=== PATIENT | female | born 1950 | race Caucasian/White ===

== ENCOUNTER 2020-10-16 11:52 | Emergency (ER) | payer MEDICARE, BC ==
--- NOTE | 2020-10-16 12:09 | EDM.PDOC ---
ED HPI GENERAL MEDICAL PROBLEM - General Chief Complaint: Cardiovascular Problem Stated Complaint: refered Time Seen by Provider: 10/16/20 11:53 Source of Information: Reports: Patient History Limitations: Reports: No Limitations - History of Present Illness INITIAL COMMENTS - FREE TEXT/NARRATIVE: Patient is a 70-year-old female who was sent over for clinic for palpitations. Patient with the clinic because she was having some right-sided chest pain that she attributed to working in garden because it became worse whenever she moves the area or bends over the some heavy. While in clinic she had a heart rate in 150s and was told to come in for evaluation. Patient here put on a monitor and get EKG did show a heart rate of 154 and you are calling atrial fibrillation but it seems to be regular not in an regular irregular pattern of A. fib. Once patient was placed on pads she converted to sinus rhythm without any medication and have not received maybe 100 cc of fluids. Before this patient did not have any left-sided chest pain no shortness of breath no headache fever chills leg swelling. States takes a lot of supplements but does have any major health problems. Currently patient still has pain on the right side of her chest but has no other complaints. Pain is nonradiating and feels like a crampy achy feeling. Right Chest Pain Score (Numeric/FACES): 0 - Related Data Allergies Allergy/AdvReac Type Severity Reaction Status Date / Time aspirin [From Percodan] Allergy Hives Verified 10/16/20 12:10 oxycodone [From Percodan] Allergy Hives Verified 10/16/20 12:10 Sulfa (Sulfonamide Allergy Hives Verified 10/16/20 12:10 Antibiotics) Home Meds: Home Meds Apixaban [Eliquis] 5 mg PO BID 30 Days #60 tablet 10/16/20 [Rx] Levothyroxine 75 mcg PO DAILY 10/16/20 [History] Metoprolol Succinate [Kapspargo Sprinkle] 25 mg PO DAILY 30 Days #30 cap.spr.24 10/16/20 [Rx] ED ROS GENERAL - Review of Systems Review Of Systems: See Below Constitutional: Reports: No Symptoms HEENT: Reports: No Symptoms Respiratory: Reports: No Symptoms Cardiovascular: Reports: Chest Pain Endocrine: Reports: No Symptoms GI/Abdominal: Reports: No Symptoms : Reports: No Symptoms Musculoskeletal: Reports: No Symptoms Skin: Reports: No Symptoms Neurological: Reports: No Symptoms Psychiatric: Reports: No Symptoms Hematologic/Lymphatic: Reports: No Symptoms Immunologic: Reports: No Symptoms ED EXAM, GENERAL - Physical Exam Exam: See Below Exam Limited By: No Limitations General Appearance: Alert, WD/WN, No Apparent Distress Eye Exam: Bilateral Eye: EOMI, PERRL Respiratory/Chest: No Respiratory Distress, Lungs Clear, Normal Breath Sounds Cardiovascular: Normal Peripheral Pulses, Regular Rate, Rhythm GI/Abdominal: Normal Bowel Sounds, Soft, Non-Tender Extremities: Normal Inspection, Normal Range of Motion Neurological: Alert, Oriented, CN II-XII Intact, Normal Cognition, Normal Gait #1 Interpretation EKG Date: 10/16/20 Time: 12:06 Rhythm: A-Fib Rate (Beats/Min): 154 ST-T: Normal #2 Interpretation EKG Date: 10/16/20 Time: 12:32 Rhythm: NSR Rate (Beats/Min): 81 ST-T: Normal Course - Vital Signs Last Recorded V/S: Last Vital Signs Temp 97.4 F 10/16/20 12:10 Pulse 84 10/16/20 12:29 Resp 16 10/16/20 12:29 BP 127/83 10/16/20 12:29 Pulse Ox 99 10/16/20 12:29 - Orders/Labs/Meds Orders: Active Orders 24 hr Category Date Time Status EKG Documentation Completion [RC] STAT Care 10/16/20 12:09 Active REFLEX LACTIC ACID YES OR NO [CHEM] Routine Lab 10/16/20 13:18 Received TROPONIN I [CHEM] Stat Lab 10/16/20 14:30 Ordered Labs: Laboratory Tests 10/16/20 10/16/20 10/16/20 Range/Units 12:18 12:18 12:18 WBC 11.79 H (4.0-11.0) K/uL RBC 4.45 (4.30-5.90) M/uL Hgb 14.3 (12.0-16.0) g/dL Hct 42.5 (36.0-46.0) % MCV 95.5 (80.0-98.0) fL MCH 32.1 H (27.0-32.0) pg MCHC 33.6 (31.0-37.0) g/dL RDW Std Deviation 46.4 (28.0-62.0) fl RDW Coeff of Becky 13 (11.0-15.0) % Plt Count 226 (150-400) K/uL MPV 9.70 (7.40-12.00) fL Neut % (Auto) 70.3 (48.0-80.0) % Lymph % (Auto) 21.2 (16.0-40.0) % Calhoun % (Auto) 8.2 (0.0-15.0) % Eos % (Auto) 0.1 (0.0-7.0) % Baso % (Auto) 0.2 (0.0-1.5) % Neut # (Auto) 8.3 H (1.4-5.7) K/uL Lymph # (Auto) 2.5 H (0.6-2.4) K/uL Calhoun # (Auto) 1.0 H (0.0-0.8) K/uL Eos # (Auto) 0.0 (0.0-0.7) K/uL Baso # (Auto) 0.0 (0.0-0.1) K/uL Nucleated RBC % 0.0 /100WBC Nucleated RBCs # 0 K/uL INR 1.11 APTT 26.5 (18.6-31.3) SEC Sodium 137 (136-145) mmol/L Potassium 3.9 (3.5-5.1) mmol/L Chloride 101 (98-107) mmol/L Carbon Dioxide 25.0 (21.0-32.0) mmol/L BUN 18 (7.0-18.0) mg/dL Creatinine 1.0 (0.6-1.0) mg/dL Est Cr Clr Drug Dosing 50.89 mL/min Estimated GFR (MDRD) 55.1 ml/min Glucose 115 H (74-106) mg/dL Lactic Acid (0.4-2.0) mmol/L Calcium 9.4 (8.5-10.1) mg/dL Total Bilirubin 0.9 (0.2-1.0) mg/dL AST 43 H (15-37) IU/L ALT 55 (14-63) IU/L Alkaline Phosphatase 104 (46-116) U/L Creatine Kinase 552 H (26-308) U/L Troponin I < 0.050 (0.000-0.056) ng/mL Total Protein 7.8 (6.4-8.2) g/dL Albumin 3.7 (3.4-5.0) g/dL Globulin 4.1 H (2.6-4.0) g/dL Albumin/Globulin Ratio 0.9 (0.9-1.6) 10/16/20 Range/Units 12:30 WBC (4.0-11.0) K/uL RBC (4.30-5.90) M/uL Hgb (12.0-16.0) g/dL Hct (36.0-46.0) % MCV (80.0-98.0) fL MCH (27.0-32.0) pg MCHC (31.0-37.0) g/dL RDW Std Deviation (28.0-62.0) fl RDW Coeff of Becky (11.0-15.0) % Plt Count (150-400) K/uL MPV (7.40-12.00) fL Neut % (Auto) (48.0-80.0) % Lymph % (Auto) (16.0-40.0) % Calhoun % (Auto) (0.0-15.0) % Eos % (Auto) (0.0-7.0) % Baso % (Auto) (0.0-1.5) % Neut # (Auto) (1.4-5.7) K/uL Lymph # (Auto) (0.6-2.4) K/uL Calhoun # (Auto) (0.0-0.8) K/uL Eos # (Auto) (0.0-0.7) K/uL Baso # (Auto) (0.0-0.1) K/uL Nucleated RBC % /100WBC Nucleated RBCs # K/uL INR APTT (18.6-31.3) SEC Sodium (136-145) mmol/L Potassium (3.5-5.1) mmol/L Chloride (98-107) mmol/L Carbon Dioxide (21.0-32.0) mmol/L BUN (7.0-18.0) mg/dL Creatinine (0.6-1.0) mg/dL Est Cr Clr Drug Dosing mL/min Estimated GFR (MDRD) ml/min Glucose (74-106) mg/dL Lactic Acid 2.5 H* (0.4-2.0) mmol/L Calcium (8.5-10.1) mg/dL Total Bilirubin (0.2-1.0) mg/dL AST (15-37) IU/L ALT (14-63) IU/L Alkaline Phosphatase (46-116) U/L Creatine Kinase (26-308) U/L Troponin I (0.000-0.056) ng/mL Total Protein (6.4-8.2) g/dL Albumin (3.4-5.0) g/dL Globulin (2.6-4.0) g/dL Albumin/Globulin Ratio (0.9-1.6) - Re-Assessments/Exams Free Text/Narrative Re-Assessment/Exam: 10/16/20 15:27 We spoke to real estate utilization officer Dr. Joseph and texting the EKGs to view. Patient was in A. fib but converted on his own. Do that and patient's chads Vascor we will start her on Eliquis and metoprolol 25 daily. Patient given instructions on if the metoprolol makes her heart rate too slow she feels lightheaded she can stop it immediately return to the ED. We will attempt to obtain patient follow-up with cardiology as well. She mentioned that there may be a cardiology in her town Dr. Esparza in [place] that she can can follow-up we will also give patient all EKGs and labs if she chooses to follow-up in her town. Departure - Departure Time of Disposition: 15:39 Disposition: Home, Self-Care 01 Condition: Good Clinical Impression: Atrial fibrillation Prescriptions: Apixaban [Eliquis] 5 mg PO BID 30 Days #60 tablet Metoprolol Succinate [Kapspargo Sprinkle] 25 mg PO DAILY 30 Days #30 cap.spr.24 Instructions: Atrial Fibrillation, [id number] Referrals: Ant Alejandro MD [Primary Care Provider] - Forms: ED Department Discharge Additional Instructions: The following information is given to patients seen in the emergency department who are being discharged to home. This information is to outline your options for follow-up care. We provide all patients seen in our emergency department with a follow-up referral. The need for follow-up, as well as the timing and circumstances, are variable depending upon the specifics of your emergency department visit. If you don't have a primary care physician on staff, we will provide you with a referral. We always advise you to contact your personal physician following an emergency department visit to inform them of the circumstance of the visit and for follow-up with them and/or the need for any referrals to a consulting specialist. The emergency department will also refer you to a specialist when appropriate. This referral assures that you have the opportunity for follow-up care with a specialist. All of these measure are taken in an effort to provide you with optimal care, which includes your follow-up. Under all circumstances we always encourage you to contact your private physician who remains a resource for coordinating your care. When calling for follow-up care, please make the office aware that this follow-up is from your recent emergency room visit. If for any reason you are refused follow-up, please contact the [facility] Emergency Department at and asked to speak to the emergency department charge nurse. Please follow up with your primary care physician. If you do not have a primary care physician, see below: [place] [address] You were seen today for atrial fibrillation.. This is arrhythmia of your heart that we attached information about. You will need to see our real estate utilization officer above we have a test number and will also put in referral for on our end as well. You will need to be started on blood thinner and metoprolol for your heart rate. You can also follow-up with a real estate utilization officer in your town that you states me there there we will give you all the EKGs and lab work as well. When you are taking the metoprolol if it makes you lightheaded or makes your heart rate go too slow you can stop it and return to ED immediately otherwise continue to take medicat ions and follow-up. If you have any other concerning signs or symptoms please return to the ED immediately. Sepsis Event Note (ED) - Focused Exam Vital Signs: Vital Signs Temp Pulse Resp BP Pulse Ox 10/16/20 12:29 84 16 127/83 99 10/16/20 12:10 97.4 F 144 H 16 116/72 97 - My Orders Last 24 Hours: My Active Orders 10/16/20 12:09 EKG Documentation Completion [RC] STAT 10/16/20 13:18 REFLEX LACTIC ACID YES OR NO [CHEM] Routine 10/16/20 14:30 TROPONIN I [CHEM] Stat - Assessment/Plan Last 24 Hours: My Active Orders 10/16/20 12:09 EKG Documentation Completion [RC] STAT 10/16/20 13:18 REFLEX LACTIC ACID YES OR NO [CHEM] Routine 10/16/20 14:30 TROPONIN I [CHEM] Stat Plan: Patient is a 70-year-old female who presents today for right-sided chest pain and elevated heart rate. Patient was seen to be in age fibrillation but converted to sinus rhythm without any intervention. Will obtain labs x-ray and reassess patient.
[2020-10-16 12:57] LABS: BLOOD UREA NITROGEN,BUN 18 mg/dL (7.0-18.0); CHLORIDE,CL 101 mmol/L (98-107); GLUCOSE RANDOM 115 mg/dL (74-106); POTASSIUM,K 3.9 mmol/L (3.5-5.1); SODIUM,NA 137 mmol/L (136-145)
--- NOTE | 2020-10-16 13:29 | CR ---
Indication: Atrial fibrillation Technique: Frontal view chest Comparison: None Findings: Normal cardiomediastinal silhouette. Normal pulmonary vasculature. No focal infiltrate, effusion or pneumothorax. No acute osseous abnormality. Dictated by Zeinab Sims MD @ 10/16/2020 1:27:[address] Zeinab Sims @ Oct 16 2020 1:27PM
== END 2020-10-16 16:29 | disposition home or self-care (01) ==
LOC: MW.ED 11:52
DX: I48.91 Unspecified atrial fibrillation (principal); Z79.899 Other long term (current) drug therapy; Z88.2 Allergy status to sulfonamides; Z88.8 Allergy status to other drugs, medicaments and biological substances; Z88.5 Allergy status to narcotic agent; Z79.01 Long term (current) use of anticoagulants
CPT/HCPCS: 36415; 71045; 71045-26; 80053; 82550; 83605; 84484; 85025; 85610; 85730; 93005; 99285-25